=== PATIENT | female | born 1990 | race Two or more races ===

== ENCOUNTER 2019-06-19 10:57 | Emergency (ER) | payer MEDICAID ==
[~2019-06-19] VITALS: Ht 157.5 cm; Wt 75.0 kg
[2019-06-19] MEDS ORDERED: IBUPROFEN 800MG TABLET PO ONE (12:15)
[2019-06-19 12:33] VITALS: BP 92/47
[2019-06-19 12:47] LABS: CLARITY URINE CLOUDY (CLEAR); COLOR URINE DARK YELLOW (YELLOW); KETONES URINE NEGATIVE (NEGATIVE); LEUKOCYTE ESTERASE URINE TRACE (NEGATIVE); NITRITE URINE NEGATIVE (NEGATIVE); OCCULT BLOOD URINE 3+ (NEGATIVE); PH URINE 5.5 (4.5-8.0); PROTEIN URINE 1+ (NEGATIVE); SPECIFIC GRAVITY URINE 1.025 (1.005-1.030)
[2019-06-19] MEDS ORDERED: CEFTRIAXONE SODIUM 1 G/VIAL IM ONE (13:00)
[2019-06-19] MEDS ORDERED: LIDOCAINE HCL 1% 20ML VIAL (Pyxis) INJ INFIL ONE (13:00)
== END 2019-06-19 13:27 | disposition home or self-care (01) ==
LOC: ER 10:57
DX: N39.0 Urinary tract infection, site not specified (principal)
CPT/HCPCS: 81003; 81025; 87086; 96372; 99283; J0696; J3490

== ENCOUNTER 2020-06-11 00:52 | Emergency (ER) | payer MEDICAID ==
[~2020-06-11] VITALS: Ht 154.9 cm; Wt 72.0 kg
[2020-06-11] MEDS ORDERED: ONDANSETRON 4MG ODT PO ONE (01:45)
[2020-06-11 01:54] LABS: CLARITY URINE CLEAR (CLEAR); COLOR URINE YELLOW (YELLOW); KETONES URINE NEGATIVE (NEGATIVE); LEUKOCYTE ESTERASE URINE TRACE (NEGATIVE); NITRITE URINE NEGATIVE (NEGATIVE); OCCULT BLOOD URINE TRACE (NEGATIVE); PH URINE 6.5 (4.5-8.0); PROTEIN URINE NEGATIVE (NEGATIVE); SPECIFIC GRAVITY URINE 1.015 (1.005-1.030)
[2020-06-11 02:16] LABS: BASOPHILS % 0.8 % (0.0-2.0); EOSINOPHILS % 0.8 % (0.0-5.0); HEMATOCRIT. 44.7 % (36.0-48.0); HEMOGLOBIN. 15.3 g/dL (12.0-16.0); LYMPHOCYTES % 28.7 % (20.0-50.0); MEAN CORPUSCULAR HEMOGLOBIN 29.8 pg (28.0-32.0); MEAN CORPUSCULAR VOLUME 87.4 fL (81.0-99.0); MEAN PLATELET VOLUME 9.5 fl (7.4-10.4); MONOCYTES % 9.1 % (2.0-8.0); NEUTROPHILS % 60.6 % (40.0-76.0); PLATELET 213 x1000/uL (130-400); RED BLOOD CELL COUNT 5.11 mill/uL (4.2-5.4); RED CELL DISTRIBUTION WIDTH 13.7 % (11.6-14.6)
[2020-06-11 02:26] LABS: CHLORIDE 109 mEq/L (98-107)
[2020-06-11 06:25] VITALS: BP 118/81
== END 2020-06-11 06:30 | disposition home or self-care (01) ==
LOC: ER 00:52
DX: N83.201 Unspecified ovarian cyst, right side (principal); R19.7 Diarrhea, unspecified; R03.0 Elevated blood-pressure reading, without diagnosis of hypertension
CPT/HCPCS: 36415; 74176; 76700; 76830; 76856; 80053; 81003; 83690; 85025; 99285; Q0162

== ENCOUNTER 2020-07-17 20:47 | Emergency (ER) | payer MEDICAID ==
[~2020-07-17] VITALS: Ht 165.1 cm; Wt 64.0 kg
[2020-07-17 21:18] VITALS: BP 116/81
[2020-07-17] MEDS ORDERED: KETOROLAC 60MG/2ML VIAL IM ONE (22:45)
[2020-07-17 22:47] LABS: BASOPHILS % 0.4 % (0.0-2.0); EOSINOPHILS % 0.9 % (0.0-5.0); HEMATOCRIT. 39.2 % (36.0-48.0); HEMOGLOBIN. 13.5 g/dL (12.0-16.0); LYMPHOCYTES % 32.5 % (20.0-50.0); MEAN CORPUSCULAR HEMOGLOBIN 30.2 pg (28.0-32.0); MEAN CORPUSCULAR VOLUME 87.8 fL (81.0-99.0); MEAN PLATELET VOLUME 9.3 fl (7.4-10.4); MONOCYTES % 9.5 % (2.0-8.0); NEUTROPHILS % 56.7 % (40.0-76.0); PLATELET 194 x1000/uL (130-400); RED BLOOD CELL COUNT 4.47 mill/uL (4.2-5.4); RED CELL DISTRIBUTION WIDTH 13.9 % (11.6-14.6)
[2020-07-17 22:57] LABS: CHLORIDE 111 mEq/L (98-107)
[2020-07-17 23:10] LABS: CLARITY URINE CLEAR (CLEAR); COLOR URINE YELLOW (YELLOW); KETONES URINE NEGATIVE (NEGATIVE); LEUKOCYTE ESTERASE URINE 1+ (NEGATIVE); NITRITE URINE NEGATIVE (NEGATIVE); OCCULT BLOOD URINE 2+ (NEGATIVE); PH URINE 5.5 (4.5-8.0); PROTEIN URINE NEGATIVE (NEGATIVE); SPECIFIC GRAVITY URINE 1.013 (1.005-1.030); UROBILINOGEN URINE 0.2 E.U./dL (0.2-1.0)
[2020-07-17] MEDS ORDERED: NITR-87 MT (23:33)
== END 2020-07-17 23:56 | disposition home or self-care (01) ==
LOC: ER 20:47
DX: N39.0 Urinary tract infection, site not specified (principal); Z98.890 Other specified postprocedural states
CPT/HCPCS: 36415; 80053; 81003; 81025; 85025; 96372; 99283; J1885

== ENCOUNTER 2021-02-17 09:37 | Emergency (ER) | payer MEDICAID ==
[~2021-02-17] VITALS: Ht 157.5 cm; Wt 63.0 kg
[~2021-02-17 09:37] MED LIST: NITR-87 MT
[2021-02-17 12:06] LABS: BASOPHILS % 0.5 % (0.0-2.0); EOSINOPHILS % 0.4 % (0.0-5.0); HEMATOCRIT. 38.6 % (36.0-48.0); MEAN CORPUSCULAR HEMOGLOBIN 29.7 pg (28.0-32.0); MEAN CORPUSCULAR VOLUME 88.2 fL (81.0-99.0); MEAN PLATELET VOLUME 9.3 fl (7.4-10.4); MONOCYTES % 7.5 % (2.0-8.0); NEUTROPHILS % 67.6 % (40.0-76.0); PLATELET 198 x1000/uL (130-400); RED BLOOD CELL COUNT 4.37 mill/uL (4.2-5.4)
[2021-02-17 12:08] LABS: CLARITY URINE CLEAR (CLEAR); COLOR URINE YELLOW (YELLOW); KETONES URINE NEGATIVE (NEGATIVE); LEUKOCYTE ESTERASE URINE NEGATIVE (NEGATIVE); NITRITE URINE NEGATIVE (NEGATIVE); OCCULT BLOOD URINE NEGATIVE (NEGATIVE); PROTEIN URINE NEGATIVE (NEGATIVE); SPECIFIC GRAVITY URINE 1.005 (1.005-1.030); UROBILINOGEN URINE 0.2 E.U./dL (0.2-1.0)
[2021-02-17 12:11] LABS: CHLORIDE 111 mEq/L (98-107)
[2021-02-17 12:15] LABS: PROTHROMBIN TIME 10.5 sec (9.6-11.0)
[2021-02-17] MEDS ORDERED: ONDANSETRON HCL 4MG/2ML INJ IV STA (12:42)
[2021-02-17] MEDS ORDERED: KETOROLAC 30MG/ML VIAL IV STA (12:42)
[2021-02-17] MEDS ORDERED: SODIUM CHLORIDE 0.9% 1,000 ML IV ONE (12:45)
[2021-02-17 13:17] LABS: CHLORIDE 112 mEq/L (98-107)
[2021-02-17 13:21] LABS: ETHANOL BLOOD < 10 mg/dL
[2021-02-17 14:04] LABS: *AMPHETAMINES SCREEN URINE NEGATIVE (NEGATIVE); *BARBITURATES SCREEN URINE NEGATIVE (NEGATIVE); *BENZODIAZEPINES SCREEN URINE NEGATIVE (NEGATIVE)
[2021-02-17 14:05] LABS: *COCAINE SCREEN URINE NEGATIVE (NEGATIVE); CANNABINOID URINE SCREEN NEGATIVE (NEGATIVE); METHADONE URINE SCREEN NEGATIVE (NEGATIVE); OPIATES URINE SCREEN NEGATIVE (NEGATIVE); PHENCYCLIDINE URINE SCREEN NEGATIVE (NEGATIVE)
[2021-02-17] MEDS ORDERED: IOHEXOL-350 100 ML BOTTLE ONE (15:21)
[2021-02-17] MEDS ORDERED: SULF1TAB48 MT (15:46)
[2021-02-17] MEDS ORDERED: DOCU-138 MT (15:46)
[2021-02-17] MEDS ORDERED: DOCUSATE SODIUM 250MG CAPSULE PO SCH (16:00)
[2021-02-17] MEDS ORDERED: MAGNESIUM CITRATE 300ML SOLUTION PO SCH (16:00)
[2021-02-17 16:43] VITALS: BP 112/75
== END 2021-02-17 16:57 | disposition home or self-care (01) ==
LOC: ER 09:37
DX: R10.9 Unspecified abdominal pain (principal); K59.00 Constipation, unspecified; R07.89 Other chest pain
CPT/HCPCS: 36415; 74177; 80053; 80305; 80320; 81003; 81025; 83690; 85025; 85610; 96361; 96374; 96375; 99285; J1885; J2405; J7030; Q9967; G0480

== ENCOUNTER 2021-07-14 12:19 | Emergency (ER) | payer MEDICAID ==
[~2021-07-14] VITALS: Ht 177.8 cm; Wt 59.0 kg
[~2021-07-14 12:19] MED LIST changes: +DOCU-138 MT; +SULF1TAB48 MT
[2021-07-14 13:24] LABS: BASOPHILS % 0.5 % (0.0-2.0); EOSINOPHILS % 0.7 % (0.0-5.0); HEMATOCRIT. 40.1 % (36.0-48.0); HEMOGLOBIN. 13.7 g/dL (12.0-16.0); LYMPHOCYTES % 22.3 % (20.0-50.0); MEAN CORPUSCULAR HEMOGLOBIN 29.9 pg (28.0-32.0); MEAN CORPUSCULAR VOLUME 87.2 fL (81.0-99.0); MEAN PLATELET VOLUME 9.1 fl (7.4-10.4); NEUTROPHILS % 69.5 % (40.0-76.0); PLATELET 234 x1000/uL (130-400); RED CELL DISTRIBUTION WIDTH 13.6 % (11.6-14.6)
[2021-07-14 13:30] LABS: HCG SCREEN NEGATIVE
[2021-07-14 13:31] LABS: CHLORIDE 112 mEq/L (98-107)
[2021-07-14 18:28] LABS: CLARITY URINE CLOUDY (CLEAR); COLOR URINE YELLOW (YELLOW); KETONES URINE NEGATIVE (NEGATIVE); LEUKOCYTE ESTERASE URINE 1+ (NEGATIVE); NITRITE URINE NEGATIVE (NEGATIVE); OCCULT BLOOD URINE 3+ (NEGATIVE); PROTEIN URINE NEGATIVE (NEGATIVE); SPECIFIC GRAVITY URINE 1.006 (1.005-1.030); UROBILINOGEN URINE 0.2 E.U./dL (0.2-1.0)
[2021-07-14] MEDS ORDERED: IOHEXOL-300 100 ML BOTTLE ONE (20:45)
[2021-07-14] MEDS ORDERED: CEPH500T MT (21:25)
[2021-07-14] MEDS ORDERED: KETOROLAC 15MG/ML VIAL IV ONE (21:30)
[2021-07-14 21:40] VITALS: BP 122/80
[2021-07-15] MEDS ORDERED: PHEN-815 PO (08:54)
== END 2021-07-14 21:48 | disposition home or self-care (01) ==
LOC: ER 12:19
DX: N39.0 Urinary tract infection, site not specified (principal); B96.89 Other specified bacterial agents as the cause of diseases classified elsewhere; R19.7 Diarrhea, unspecified
CPT/HCPCS: 36415; 74177; 80053; 81003; 84703; 85025; 96374; 99285; J1885; Q9967

== ENCOUNTER 2021-07-15 04:37 | Emergency (ER) | payer MEDICAID ==
[~2021-07-15] VITALS: Ht 152.4 cm; Wt 64.0 kg
[~2021-07-15 04:37] MED LIST changes: +CEPH500T MT
[2021-07-15] MEDS ORDERED: MORPHINE SULFATE 4 MG/ML CPJ (NOT FOR IM USE) IV STA (06:21)
[2021-07-15] MEDS ORDERED: ONDANSETRON HCL 4MG/2ML INJ IV STA (06:21)
[2021-07-15] MEDS ORDERED: SODIUM CHLORIDE 0.9% 1,000 ML IV ONE (06:30)
[2021-07-15 06:53] LABS: BASOPHILS % 0.3 % (0.0-2.0); EOSINOPHILS % 0.1 % (0.0-5.0); HEMATOCRIT. 40.2 % (36.0-48.0); HEMOGLOBIN. 13.8 g/dL (12.0-16.0); MEAN CORPUSCULAR VOLUME 87.2 fL (81.0-99.0); MEAN PLATELET VOLUME 9.3 fl (7.4-10.4); NEUTROPHILS % 83.6 % (40.0-76.0); PLATELET 241 x1000/uL (130-400); RED BLOOD CELL COUNT 4.61 mill/uL (4.2-5.4); RED CELL DISTRIBUTION WIDTH 13.7 % (11.6-14.6)
[2021-07-15 07:01] LABS: CHLORIDE 109 mEq/L (98-107)
[2021-07-15 07:18] LABS: HCG SCREEN NEGATIVE
[2021-07-15 08:34] LABS: CLARITY URINE TURBID (CLEAR); COLOR URINE RED (YELLOW); KETONES URINE TRACE (NEGATIVE); LEUKOCYTE ESTERASE URINE 1+ (NEGATIVE); NITRITE URINE POSITIVE (NEGATIVE); OCCULT BLOOD URINE 3+ (NEGATIVE); PROTEIN URINE 2+ (NEGATIVE)
[2021-07-15] MEDS ORDERED: PHEN-815 PO (08:54)
[2021-07-15] MEDS ORDERED: PHENAZOPYRIDINE HCL 100MG TABLET PO ONE (09:00)
[2021-07-15 09:08] VITALS: BP 99/61
== END 2021-07-15 10:07 | disposition home or self-care (01) ==
LOC: ER 04:37
DX: R30.0 Dysuria (principal); Z98.890 Other specified postprocedural states
CPT/HCPCS: 36415; 76830; 76856; 80053; 81003; 83690; 84703; 85025; 96361; 96374; 96375; 99284; J2270; J2405; J7030; Z7610